=== PATIENT | female | born 1935 | race Caucasian/White ===

== ENCOUNTER 2017-07-10 03:55 | Inpatient (IN) | payer OTHER, MEDICARE ==
[2017-07-10] VITALS (8 sets, daily range): BP systolic 132–167; BP diastolic 62–72; PULSE 85–120; RESP 16–24; TEMP 98.1–99.1; O2SAT 91–96
[~2017-07-10] VITALS: Ht 162.6 cm; Wt 57.0 kg
--- NOTE | 2017-07-10 04:01 | PD ---
HPI Chief Complaint: Respiratory distress, hypoxia Time Seen by Provider: 04:00 Travel History International Travel<30 days: No Contact w/Intl Traveler<30days: No Traveled to known affect area: No History of Present Illness HPI 82-year-old female came to the emergency room with history of shortness of breath that progressively worsened over past 24 hours. Patient woke up at midnight with shortness of breath. She has oxygen at home which is for as needed use and she did use it. However her symptoms did not improve and she called 911. As per EMS upon their arrival patient was short of breath and decreased air entry. She has history of COPD. They started giving her albuterol nebulizer. When they transferred her to the stretcher oxygen saturation dropped down to 88%. At this point they added Atrovent and patient got total of 3 nebulizers. When she arrived here her oxygen saturation was 92% on room air and she said she was feeling little better. Patient is a heavy smoker since she was 14 years of age. She has never been intubated. She does have history of [place] and had a stent put in in 1995. She has not been in hospital since then. Patient denies of any chest pain. [facility] Past Medical History Narrative Medical List of her past medical, surgical, social and family history is reviewed from the nursing note. Social History Tobacco Use: Yes Allergies-Medications (Allergen,Severity, Reaction): Coded Allergies: penicillin G (Unverified Allergy, Severe, 07/10/17) Uncoded Allergies: NKA (Allergy, Unknown, 12/31/02) PCN (Allergy, Unknown, 12/31/02) Comments List of her allergies reviewed from the nursing note. Reported Meds & Prescriptions Reported Meds & Active Scripts Active Reported Tramadol (Tramadol HCl) 50 Mg Tab 50 Mg PO DAILY PRN Plavix (Clopidogrel Bisulfate) 75 Mg Tab 75 Mg PO DAILY Isosorbide Mononitrate ER (Isosorbide Mononitrate) 30 Mg Marcela 30 Mg PO DAILY Citalopram (Citalopram Hydrobromide) 40 Mg Tab 40 Mg PO DAILY Melatonin 5 Mg Tab 5 Mg PO HS Aspirin Low Dose (Aspirin) 81 Mg Chew 81 Mg CHEW DAILY Atorvastatin (Atorvastatin Calcium) 40 Mg Tab 40 Mg PO HS Narrative Medication List of her home medications reviewed from the nursing note. Review of Systems Except as stated in HPI: all other systems reviewed are Neg Respiratory: Positive: Shortness of Breath Physical Exam Narrative GENERAL: Awake, alert, elderly, anxious, moderate distress SKIN: Focused skin assessment warm/dry. HEAD: Atraumatic. Normocephalic. EYES: Pupils equal and round. No scleral icterus. No injection or drainage. ENT: No nasal bleeding or discharge. Mucous membranes pink and moist. NECK: Trachea midline. No JVD. CARDIOVASCULAR: Regular rate and rhythm. No murmur appreciated. RESPIRATORY: No accessory muscle use. End expiratory wheeze with coarse bilateral basilar crackles GASTROINTESTINAL: Abdomen soft, non-tender, nondistended. Hepatic and splenic margins not palpable. MUSCULOSKELETAL: No obvious deformities. No clubbing. No cyanosis. No edema. NEUROLOGICAL: Awake and alert. No obvious cranial nerve deficits. Motor grossly within normal limits. Normal speech. PSYCHIATRIC: Appropriate mood and affect; insight and judgment normal. Data Data Last Documented VS Orders Orders Complete Blood Count With Diff (07/10/17 04:06) Basic Metabolic Panel (Bmp) (07/10/17 04:06) B-Type Natriuretic Peptide (07/10/17 04:06) Prothrombin Time / Inr (Pt) (07/10/17 04:06) Magnesium (Mg) (07/10/17 04:06) Troponin I (07/10/17 04:06) Arterial Blood Gas (Abg) (07/10/17 04:06) Blood Culture (07/10/17 04:06) Iv Access Insert/Monitor (07/10/17 04:06) Electrocardiogram (07/10/17 04:06) Ecg Monitoring (07/10/17 04:06) Oximetry (07/10/17 04:06) Oxygen Administration (07/10/17 04:06) Chest, Single Ap (07/10/17 04:06) Sodium Chloride 0.9% Flush (Ns Flush) (07/10/17 04:15) Albuterol-Ipratropium Neb (Duoneb Neb) (07/10/17 04:30) Admit Order (Ed Use Only) (07/10/17 06:31) Place In Observation (07/10/17 ) Vital Signs (Adult) Q4H (07/10/17 06:29) Activity Oob With Assistance (07/10/17 06:29) Education Technician / Telemetry .CONTINUOUS (07/10/17 06:29) Intake + Output OMID.QSHIFT (07/10/17 06:29) Diet Heart Healthy (07/10/17 Breakfast) Sodium Chloride 0.9% Flush (Ns Flush) (07/10/17 06:30) Sodium Chloride 0.9% Flush (Ns Flush) (07/10/17 09:00) Acetaminophen (Tylenol) (07/10/17 06:30) Ondansetron Inj (Zofran Inj) (07/10/17 06:30) Basic Metabolic Panel (Bmp) (07/11/17 06:00) Complete Blood Count With Diff (07/11/17 06:00) Pt Request For Service (07/10/17 06:29) Case Management Consult (07/10/17 06:29) Scd Bilateral/Knee High OMID.BID (07/10/17 06:29) Naloxone Inj (Narcan Inj) (07/10/17 06:30) Ipratropium Neb (Atrovent Neb) (07/10/17 06:30) Ipratropium Neb (Atrovent Neb) (07/10/17 10:00) Methylprednisolone So Succ Inj (Solumedr (07/10/17 07:00) Methylprednisolone So Succ Inj (Solumedr (07/10/17 13:00) Labs Laboratory Tests Test 07/10/17 04:05 07/10/17 04:20 07/10/17 06:24 Blood Gas Puncture Site LT RADIAL Blood Gas Patient Temperature 98.6 Blood Gas HCO3 23 mmol/L Blood Gas Base Excess -0.9 mmol/L Blood Gas Oxygen Saturation 84 % Arterial Blood pH 7.39 Arterial Blood Partial Pressure CO2 39 mmHg Arterial Blood Partial Pressure O2 56 mmHG Arterial Blood Oxygen Content 16.8 Vol % Arterial Blood Carboxyhemoglobin 4.6 % Arterial Blood Methemoglobin 0.7 % Blood Gas Hemoglobin 14.2 G/DL Oxygen Delivery Device ROOM AIR Blood Gas Inspired Oxygen 21 % White Blood Count 8.1 TH/MM3 Red Blood Count 4.64 MIL/MM3 Hemoglobin 14.8 GM/DL Hematocrit 44.5 % Mean Corpuscular Volume 95.9 FL Mean Corpuscular Hemoglobin 31.9 PG Mean Corpuscular Hemoglobin Concent 33.2 % Red Cell Distribution Width 14.8 % Platelet Count 174 TH/MM3 Mean Platelet Volume 8.8 FL Neutrophils (%) (Auto) 60.6 % Lymphocytes (%) (Auto) 23.0 % Monocytes (%) (Auto) 13.3 % Eosinophils (%) (Auto) 2.5 % Basophils (%) (Auto) 0.6 % Neutrophils # (Auto) 4.9 TH/MM3 Lymphocytes # (Auto) 1.9 TH/MM3 Monocytes # (Auto) 1.1 TH/MM3 Eosinophils # (Auto) 0.2 TH/MM3 Basophils # (Auto) 0.0 TH/MM3 CBC Comment DIFF FINAL Differential Comment Prothrombin Time 9.9 SEC Prothromb Time International Ratio 1.0 RATIO B-Type Natriuretic Peptide 16 PG/ML Blood Urea Nitrogen 16 MG/DL Creatinine 1.12 MG/DL Random Glucose 187 MG/DL Calcium Level 8.1 MG/DL Magnesium Level 2.0 MG/DL Sodium Level 142 MEQ/L Potassium Level 6.2 MEQ/L Chloride Level 111 MEQ/L Carbon Dioxide Level 23.6 MEQ/L Anion Gap 7 MEQ/L Estimat Glomerular Filtration Rate 47 ML/MIN Troponin I LESS THAN 0.02 NG/ML MDM Medical Decision Making Medical Screen Exam Complete: Yes Emergency Medical Condition: Yes Medical Record Reviewed: Yes Interpretation(s) Twelve-lead EKG was reviewed by me. Normal sinus rhythm, normal axis, tachycardia, right atrial enlargement. Heart rate of 118 bpm. Differential Diagnosis Acute COPD exacerbation, CHF, pneumonia Narrative Course 5:45 AM CBCs within normal limits. Chest x-ray is negative. Patient was given 2 more DuoNeb's. ABG suggestive of hypoxia. Awaiting for the chemistry. Patient will require admission. Critical Care Narrative Aggregate critical care time was 30 minutes. Time to perform other separately billable procedures was not included in the critical care time. My time did not include minutes spent treating any other patients simultaneously or on activities that did not directly contribute to the patient's treatment. The services I provided to this patient were to treat and/or prevent clinically significant deterioration that could result in: Respiratory distress, COPD exacerbation I provided critical care services requiring my management, as noted below: Chart data review, documentation time, medication orders and management, vital sign assessments/reviewing monitor data, ordering and reviewing lab tests, ordering and interpreting/reviewing x-rays and diagnostic studies, care of the patient and discussion of the patient with the admitting physicians. Procedures EKG Prior to Arrival: No Diagnosis Primary Impression: Respiratory distress Additional Impressions: Acute exacerbation of chronic obstructive pulmonary disease (COPD) Hypoxia Admitting Information Admitting Physician Requests: Admit Scripts Prednisone (21) 10 mg tab Dose Pack (Prednisone (21) 10 mg tab Dose Pack) 10 Mg Pack 10 MG PO DIRECTED for Inflammation, #1 DSPK 0 Refills Prov: Maru Acuna MD 07/11/17 Magnolia Hughes MD Jul 10, 2017 04:00
[2017-07-10] MEDS ORDERED: SODIUM CHLORIDE 0.9% FLUSH 10 ML FLUSH IVF PRN (04:15)
[2017-07-10] MEDS ORDERED: ISOS30TA3 PO (04:22)
[2017-07-10] MEDS ORDERED: ATOR40TA16 PO (04:22)
[2017-07-10] MEDS ORDERED: MELA5 PO (04:22)
[2017-07-10] MEDS ORDERED: ASPI81CH6 CHEW (04:22)
[2017-07-10] MEDS ORDERED: PLAV75TA29 PO (04:22)
[2017-07-10] MEDS ORDERED: CITA40TA4 PO (04:22)
[2017-07-10] MEDS: RESP: ALBUTEROL 2.5 MG/IPRATROPIUM 0.5 MG NEB (SCH) INH (04:34)
[2017-07-10 04:39] LABS: AUTOMATED NEUTROPHIL # 4.9 TH/MM3 (1.8-7.7); BASOPHIL % 0.6 % (0.0-2.0); EOSINOPHIL # 0.2 TH/MM3 (0-0.4); EOSINOPHIL % 2.5 % (0.0-4.0); HEMATOCRIT 44.5 % (35.0-46.0); HEMOGLOBIN 14.8 GM/DL (11.6-15.3); LYMPHOCYTE # 1.9 TH/MM3 (1.0-4.8); MEAN CELL VOLUME 95.9 FL (80.0-100.0); MEAN CORPUSCULAR HEMOGLOBIN 31.9 PG (27.0-34.0); MEAN CORPUSCULAR HGB CONC 33.2 % (32.0-36.0); MEAN PLATELET VOLUME 8.8 FL (7.0-11.0); MONO % 13.3 % (0.0-8.0); MONOCYTE # 1.1 TH/MM3 (0-0.9); NEUT % 60.6 % (16.0-70.0); PLATELET COUNT 174 TH/MM3 (150-450); RED BLOOD COUNT 4.64 MIL/MM3 (4.00-5.30); RED CELL DISTRIBUTION WIDTH 14.8 % (11.6-17.2); WHITE BLOOD COUNT 8.1 TH/MM3 (4.0-11.0)
--- NOTE | 2017-07-10 04:42 | RADRPT ---
EXAM DATE/TIME: 07/10/2017 04:22 [place] COMPARISON: No previous studies available for comparison. INDICATIONS : Severe headache, shortness of breath. MEDICAL HISTORY : Congestive heart failure. SURGICAL HISTORY : None. ENCOUNTER: Initial ACUITY: 1 day PAIN SCORE: 0/10 LOCATION: Bilateral chest FINDINGS: A single view of the chest demonstrates the lungs to be symmetrically aerated without evidence of mas s, infiltrate or effusion. The cardiomediastinal contours are unremarkable. Osseous structures are intact. CONCLUSION: The lungs are clear. Shahriar Min MD on July 10, 2017 at 4:40 Board Certified Radiologist. This report was verified electronically.
[2017-07-10 04:52] LABS: PROTHROMBIN TIME - PATIENT 9.9 SEC (9.8-11.6)
[2017-07-10] MEDS ORDERED: RESP: IPRATROPIUM 0.5 MG/2.5 ML NEB NEB PRN (06:30)
[2017-07-10] MEDS ORDERED: ONDANSETRON HCL 4 MG/2 ML VIAL IVP PRN (06:30)
[2017-07-10] MEDS ORDERED: NALOXONE HCL 0.4 MG/ML AMP IV PUSH PRN (06:30)
[2017-07-10] MEDS ORDERED: ACETAMINOPHEN 325 MG TAB PO PRN (06:30)
[2017-07-10] MEDS ORDERED: SODIUM CHLORIDE 0.9% FLUSH 10 ML FLUSH IV FLUSH PRN (06:30)
[2017-07-10] MEDS ORDERED: ACETAMINOPHEN 325 MG TAB PO ONE (06:45)
[2017-07-10] MEDS ORDERED: methylPREDNISolone SOD SUCC 125 MG/2 ML VIAL IV PUSH ONE (07:00)
[2017-07-10 07:15] LABS: TROPONIN I LESS THAN 0.02 NG/ML (0.02-0.05)
[2017-07-10 07:23] LABS: BICARBONATE 23.6 MEQ/L (21.0-32.0); BLOOD UREA NITROGEN 16 MG/DL (7-18); CALCIUM 8.1 MG/DL (8.5-10.1); CHLORIDE 111 MEQ/L (98-107); CREATININE 1.12 MG/DL (0.50-1.00); GLOMERULAR FILTRATION RATE 47 ML/MIN (>89); GLUCOSE,RANDOM 187 MG/DL (74-106); SODIUM (NA) 142 MEQ/L (136-145)
[2017-07-10] MEDS ORDERED: TRAM50TA PO (08:28)
[2017-07-10] MEDS ORDERED: SODIUM POLYSTYRENE SULFONATE SUSP 15 GM/60 ML CUP PO ONE (09:15)
[2017-07-10] MEDS: RESP: IPRATROPIUM 0.5 MG/2.5 ML NEB NEB SCH ×3 (10:00→20:20)
--- NOTE | 2017-07-10 10:31 | EKG ---
Date Performed: 07/10/2017 Time Performed: 04:04:23 PTAGE: 82 years EKG: SINUS TACHYCARDIA POSSIBLE LEFT ATRIAL ENLARGEMENT NONSPECIFIC ST & T-WAVE ABNORMALITY ABNO RMAL RHYTHM ECG Compared to PREVIOUS TRACING the patient is now tachycardic and has nonspecific ST T wave changes ID [id number] TRACIN12/13/2002 14.08 DOCTOR: Jessica Diaz Interpretating Date/Time 07/10/2017 10:30:45
[2017-07-10] MEDS: SODIUM CHLORIDE 0.9% FLUSH 10 ML FLUSH IV FLUSH SCH (10:45)
[2017-07-10] MEDS: SODIUM CHLOR 0.9% 1000 ML INJ 1,000 ML IV SCH ×2 (10:45→22:35)
[2017-07-10] MEDS: traMADol HCL 50 MG TAB PO PRN (12:21)
[2017-07-10] MEDS: ASPIRIN 81 MG CHEW TAB CHEW SCH (12:22)
[2017-07-10] MEDS: CLOPIDOGREL 75 MG TAB PO SCH (12:24)
[2017-07-10] MEDS: CITALOPRAM HYDROBROMIDE 40 MG TAB PO SCH (13:25)
[2017-07-10] MEDS: ISOSORBIDE MONONITRATE 30 MG CR TAB (IMDUR) PO SCH (13:26)
[2017-07-10] MEDS: methylPREDNISolone SOD SUCC 40 MG/1 ML VIAL IV PUSH SCH ×2 (13:28→18:07)
--- NOTE | 2017-07-10 15:04 | HHI.HP ---
HPI Service [facility] Primary Care Physician Non-Staff Admission Diagnosis Acute COPD exacerbation, hypoxia, shortness of breath Diagnoses: Chief Complaint: Increase SOB Travel History International Travel<30 Days: No Contact w/Intl Traveler <30 Da: No Traveled to Known Affected Are: No History of Present Illness Written by Sahara Puente, acting as scribe for Dr. Acuna on 07/10/17 at 15:04. Patient is an 83-year-old female with primary medical history of HTN, HLD, COPD, tobacco abuse who came into the hospital with complaints of increasing shortness of breath. Patient states that last night she woke up and feels like she had a panic attack, she cannot breathe she got her oxygen but continues to not be able to catch her breath that she called the EMS. Currently , patient states that she felt improved in shortness of breath is a lot better. States that she has oxygen that she uses off and on at home. States that she continues to smoke about 11 cigarettes per day, patient also admits that she has been smoking since then she was 14 years old. She is willing to be placed on nicotine patch. 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 Benítez. Denies pain and discomfort. Denies chest pain, palpitations, headaches, dizziness. Denies fevers, chills, n/ v. Denies dysuria. 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 HLD HTN Past Surgical History Stent placement in her legs Stent placement in her heart Back surgery Reported Medications Reported Meds & Active Scripts Active Reported Tramadol (Tramadol HCl) 50 Mg Tab 50 Mg PO DAILY PRN Plavix (Clopidogrel Bisulfate) 75 Mg Tab 75 Mg PO DAILY Isosorbide Mononitrate ER (Isosorbide Mononitrate) 30 Mg Marcela 30 Mg PO DAILY Citalopram (Citalopram Hydrobromide) 40 Mg Tab 40 Mg PO DAILY Melatonin 5 Mg Tab 5 Mg PO HS Aspirin Low Dose (Aspirin) 81 Mg Chew 81 Mg CHEW DAILY Atorvastatin (Atorvastatin Calcium) 40 Mg Tab 40 Mg PO HS Allergies: Coded Allergies: penicillin G (Unverified Allergy, Severe, 07/10/17) Uncoded Allergies: NKA (Allergy, Unknown, 12/31/02) PCN (Allergy, Unknown, 12/31/02) Active Ordered Medications Current Medications Medications (Trade) Dose Ordered Sig/Isma Route Start Time Stop Time Status Last Admin (NS Flush) 2 ml UNSCH PRN IVF 07/10/17 04:15 (NS Flush) 2 ml UNSCH PRN IV FLUSH 07/10/17 06:30 (NS Flush) 2 ml BID IV FLUSH 07/10/17 09:00 07/10/17 10:45 (Tylenol) 650 mg Q4H PRN PO 07/10/17 06:30 (Zofran Inj) 4 mg Q6H PRN IVP 07/10/17 06:30 (Narcan Inj) 0.4 mg UNSCH PRN IV PUSH 07/10/17 06:30 (Atrovent Neb) 0.5 mg Q2HR NEB PRN NEB 07/10/17 06:30 (Atrovent Neb) 0.5 mg Q6HR NEB NEB 07/10/17 10:00 (SoluMEDROL INJ) 40 mg Q6HR IV PUSH 07/10/17 13:00 07/10/17 13:28 Sodium Chloride 1,000 ml @ 75 mls/hr [id number] IV 07/10/17 09:15 07/10/17 10:45 (Aspirin Chew) 81 mg DAILY CHEW 07/10/17 11:00 07/10/17 12:22 (Lipitor) 40 mg HS PO 07/10/17 21:00 (CeleXA) 40 mg DAILY PO 07/10/17 11:00 07/10/17 13:25 (Plavix) 75 mg DAILY PO 07/10/17 11:00 07/10/17 12:24 (Imdur) 30 mg DAILY PO 07/10/17 11:00 07/10/17 13:26 (Melatonin) 5 mg HS PO 07/10/17 21:00 (Ultram) 50 mg DAILY PRN PO 07/10/17 11:00 07/10/17 12:21 (Habitrol 14 Mg Patch.24 Hr) 1 patch DAILY T-DERMAL 07/10/17 15:45 Miscellaneous Information 1 DAILY T-DERMAL 07/11/17 09:00 Family History Mother has heart attack at the age of 72 and passed. Sister also had heart attacks. Brother had cancer of the liver and passed Social History Lives at home. Denies alcohol use Current smoker, 11 cigarettes per day Denies illicit drug use Physical Exam Vital Signs Vital Signs Date Time Temp Pulse Resp B/P (MAP) Pulse Ox O2 Delivery O2 Flow Rate FiO2 07/10/17 12:52 98.1 96 18 157/65 (95) 96 07/10/17 11:04 96 16 132/62 (85) 94 Room Air 07/10/17 07:33 102 18 150/67 (94) 96 Nasal Cannula 3.00 07/10/17 04:45 93 Nasal Cannula 4.00 07/10/17 04:08 24 91 Room Air 07/10/17 04:08 Nasal Cannula 2.00 07/10/17 04:05 98.2 120 24 167/72 (103) 91 Physical Exam GENERAL: This is a well-nourished, well-developed patient, shortness of breath. SKIN: Cool and dry. HEAD: Atraumatic. Normocephalic. No temporal or scalp tenderness. EYES: Pupils equal round and reactive. Extraocular motions intact. No scleral icterus. No injection or drainage. ENT: Nose without bleeding. Throat without erythema. Uvula midline. Airway patent. NECK: Trachea midline. CARDIOVASCULAR: Regular rate and rhythm without murmurs, gallops, or rubs. RESPIRATORY: Clear to auscultation. Breath sounds equal bilaterally. No wheezes , rales, or rhonchi. GASTROINTESTINAL: Abdomen soft, non-tender, nondistended. MUSCULOSKELETAL: Extremities without clubbing, cyanosis, or edema. NEUROLOGICAL: Awake and alert. Cranial nerves II through XII intact. Motor and sensory grossly within normal limits. Normal speech. Laboratory Laboratory Tests Test 07/10/17 04:05 07/10/17 04:20 07/10/17 06:24 Blood Gas Puncture Site LT RADIAL Blood Gas Patient Temperature 98.6 Blood Gas HCO3 23 Blood Gas Base Excess -0.9 Blood Gas Oxygen Saturation 84 Arterial Blood pH 7.39 Arterial Blood Partial Pressure CO2 39 Arterial Blood Partial Pressure O2 56 Arterial Blood Oxygen Content 16.8 Arterial Blood Carboxyhemoglobin 4.6 Arterial Blood Methemoglobin 0.7 Blood Gas Hemoglobin 14.2 Oxygen Delivery Device ROOM AIR Blood Gas Inspired Oxygen 21 White Blood Count 8.1 Red Blood Count 4.64 Hemoglobin 14.8 Hematocrit 44.5 Mean Corpuscular Volume 95.9 Mean Corpuscular Hemoglobin 31.9 Mean Corpuscular Hemoglobin Concent 33.2 Red Cell Distribution Width 14.8 Platelet Count 174 Mean Platelet Volume 8.8 Neutrophils (%) (Auto) 60.6 Lymphocytes (%) (Auto) 23.0 Monocytes (%) (Auto) 13.3 Eosinophils (%) (Auto) 2.5 Basophils (%) (Auto) 0.6 Neutrophils # (Auto) 4.9 Lymphocytes # (Auto) 1.9 Monocytes # (Auto) 1.1 Eosinophils # (Auto) 0.2 Basophils # (Auto) 0.0 CBC Comment DIFF FINAL Differential Comment Prothrombin Time 9.9 Prothromb Time International Ratio 1.0 B-Type Natriuretic Peptide 16 Blood Urea Nitrogen 16 Creatinine 1.12 Random Glucose 187 Calcium Level 8.1 Magnesium Level 2.0 Sodium Level 142 Potassium Level 6.2 Chloride Level 111 Carbon Dioxide Level 23.6 Anion Gap 7 Estimat Glomerular Filtration Rate 47 Troponin I LESS THAN 0.02 Date/Time Source Procedure Growth Status 07/10/17 04:25 Blood Peripheral Aerobic Blood Culture Pending Received 07/10/17 04:25 Blood Peripheral Anaerobic Blood Culture Pending Received Result Diagram: 07/10/17 0420 07/10/17 0624 Imaging Last Impressions Chest X-Ray 07/10/17 0406 Signed Impressions: Service Date/Time: Monday, July 10, 2017 04:22 - CONCLUSION: The lungs are clear. Shahriar Min MD Caprini VTE Risk Assessment Caprini VTE Risk Assessment: Mod/High Risk (score >= 2) Caprini Risk Assessment Model Point Value = 1 Point Value = 2 Point Value = 3 Point Value = 5 Age 41-60 Minor surgery BMI > 25 kg/m2 Swollen legs Varicose veins or History of unexplained or recurrent spontaneous Oral contraceptives or hormone replacement Sepsis (< 1 month) Serious lung disease, including pneumonia (< 1 month) Abnormal pulmonary function Acute myocardial infarction Congestive heart failure (< 1 month) History of inflammatory bowel disease Medical patient at bed rest Age 61-74 Arthroscopic surgery Major open surgery (> 45 min) Laparoscopic surgery (> 45 min) Malignancy Confined to bed (> 72 hours) Immobilizing plaster cast Central venous access Age >= 75 History of VTE Family history of VTE Factor V Leiden Prothrombin [id number] Lupus anticoagulant Anticardiolipin antibodies Elevated serum homocysteine Heparin-induced thrombocytopenia Other congenital or acquired thrombophilia Stroke (< 1 month) Elective arthroplasty Hip, pelvis, or leg fracture Acute spinal cord injury (< 1 month) Prophylaxis Regimen Total Risk Factor Score Risk Level Prophylaxis Regimen 0-1 Low Early ambulation 2 Moderate Order ONE of the following: *Sequential Compression Device (SCD) *Heparin 5000 units SQ BID 3-4 Higher Order ONE of the following medications: *Heparin 5000 units SQ TID *Enoxaparin/Lovenox 40 mg SQ daily (WT < 150 kg, CrCl > 30 mL/min) *Enoxaparin/Lovenox 30 mg SQ daily (WT < 150 kg, CrCl > 10-29 mL/min) *Enoxaparin/Lovenox 30 mg SQ BID (WT < 150 kg, CrCl > 30 mL/min) AND/OR *Sequential Compression Device (SCD) 5 or more Highest Order ONE of the following medications: *Heparin 5000 units SQ TID (Preferred with Epidurals) *Enoxaparin/Lovenox 40 mg SQ daily (WT < 150 kg, CrCl > 30 mL/min) *Enoxaparin/Lovenox 30 mg SQ daily (WT < 150 kg, CrCl > 10-29 mL/min) *Enoxaparin/Lovenox 30 mg SQ BID (WT < 150 kg, CrCl > 30 mL/min) AND *Sequential Compression Device (SCD) Assessment and Plan Problem List: (1) Acute exacerbation of chronic obstructive pulmonary disease (COPD) ICD Code: J44.1 - Chronic obstructive pulmonary disease with (acute) exacerbation Status: Acute (2) Hypoxia ICD Code: R09.02 - Hypoxemia Status: Acute (3) Respiratory distress ICD Code: R06.03 - Acute respiratory distress Status: Acute Assessment and Plan Patient is an 83-year-old female with primary medical history of HTN, HLD, COPD, tobacco abuse who came into the hospital with complaints of increasing shortness of breath. COPD exacerbation Respiratory failure -Continue O2 nasal cannula, maintain O2 sat greater than 90% -Duo nebs scheduled and as needed -IV Solu-Medrol. Will DC with prednisone 20 mg twice daily 5 days -Start Symbicort BID -Follow-up labs. -States she is significantly improved. Monitor respiratory status Hyperkalemia -Potassium 6.2 -Kayexalate 1 dose -Monitor potassium level HTN, uncontrolled HLD -Continue home medications aspirin 81 mg, atorvastatin 40 mg, Plavix 75 mg, isosorbide 30 mg daily -We will add Norvasc daily Insomnia -Continue melatonin Tobacco abuse -Patient has been counseled. She plans to cut back on her smoking and totally quit. -Nicotine patch DVT prop heparin This note was transcribed by MAURICE Small . I, Dr. Maru Acuna personally performed the history, physical exam, and medical decision making; and confirmed the accuracy of the information in the transcribed note. Authenticated by Dr. Maru Acuna on 07/10/17 at 15:04. Code Status Full code Discussed Condition With Patient, nursing Physician Certification 2 Midnight Certification Type: Admission for Inpatient Services Order for Inpatient Services The services are ordered in accordance with Medicare regulations or non- Medicare payer requirements, as applicable. In the case of services not specified as inpatient-only, they are appropriately provided as inpatient services in accordance with the 2-midnight benchmark. Estimated LOS (days): 2 days is the estimated time the patient will need to remain in the hospital, assuming treatment plan goals are met and no additional complications. Post-Hospital Plan: Home Sahara Staton Jul 10, 2017 15:04 Maru Acuna MD Jul 10, 2017 15:29
[2017-07-10] MEDS ORDERED: MELATONIN 5 MG TAB PO PRN (15:15)
[2017-07-10] MEDS: NICOTINE 14 MG/24 HR PATCH T-DERMAL SCH (18:07)
[2017-07-10] MEDS: amLODIPine BESYLATE 5 MG TAB PO SCH (18:07)
[2017-07-10] MEDS ORDERED: MELATONIN 5 MG TAB PO SCH (21:00)
[2017-07-10] MEDS ORDERED: ATORVASTATIN 40 MG TAB PO SCH (21:00)
[2017-07-11 00:38] VITALS: BP 176/76; PULSE 94; RESP 18; TEMP 98.3; O2SAT 97
[2017-07-11] MEDS: methylPREDNISolone SOD SUCC 40 MG/1 ML VIAL IV PUSH SCH ×3 (02:12→13:22)
[2017-07-11] MEDS: SODIUM CHLORIDE 0.9% FLUSH 10 ML FLUSH IV FLUSH SCH (02:12)
[2017-07-11] MEDS: BUDESONIDE-FORMOTEROL 160/4.5 MCG INHALER INH SCH ×2 (02:12→09:59)
[2017-07-11] MEDS: traMADol HCL 50 MG TAB PO PRN (02:23)
[2017-07-11] MEDS: RESP: IPRATROPIUM 0.5 MG/2.5 ML NEB NEB SCH ×2 (03:55→08:26)
[2017-07-11 04:11] VITALS: BP 141/69; PULSE 88; RESP 18; TEMP 97.7; O2SAT 96
[2017-07-11 07:15] LABS: AUTOMATED NEUTROPHIL # 12.2 TH/MM3 (1.8-7.7); BASOPHIL % 0.1 % (0.0-2.0); HEMATOCRIT 36.5 % (35.0-46.0); HEMOGLOBIN 12.6 GM/DL (11.6-15.3); LYMPHOCYTE # 0.4 TH/MM3 (1.0-4.8); MEAN CELL VOLUME 95.1 FL (80.0-100.0); MEAN CORPUSCULAR HEMOGLOBIN 32.7 PG (27.0-34.0); MEAN CORPUSCULAR HGB CONC 34.4 % (32.0-36.0); MEAN PLATELET VOLUME 8.6 FL (7.0-11.0); MONO % 3.2 % (0.0-8.0); MONOCYTE # 0.4 TH/MM3 (0-0.9); NEUT % 93.7 % (16.0-70.0); PLATELET COUNT 160 TH/MM3 (150-450); RED BLOOD COUNT 3.84 MIL/MM3 (4.00-5.30); RED CELL DISTRIBUTION WIDTH 14.7 % (11.6-17.2); WHITE BLOOD COUNT 13.1 TH/MM3 (4.0-11.0)
[2017-07-11 07:47] LABS: BICARBONATE 24.1 MEQ/L (21.0-32.0); CALCIUM 8.5 MG/DL (8.5-10.1); CREATININE 0.66 MG/DL (0.50-1.00)
[2017-07-11 08:00] VITALS: BP 162/72; PULSE 89; RESP 18; TEMP 97.4; O2SAT 96
[2017-07-11] MEDS ORDERED: REMOVE OLD PATCH T-DERMAL SCH (09:00)
[2017-07-11] MEDS: CLOPIDOGREL 75 MG TAB PO SCH (09:58)
[2017-07-11] MEDS: CITALOPRAM HYDROBROMIDE 40 MG TAB PO SCH (09:58)
[2017-07-11] MEDS: ISOSORBIDE MONONITRATE 30 MG CR TAB (IMDUR) PO SCH (09:58)
[2017-07-11] MEDS: amLODIPine BESYLATE 5 MG TAB PO SCH (09:58)
[2017-07-11] MEDS: ASPIRIN 81 MG CHEW TAB CHEW SCH (09:58)
[2017-07-11] MEDS: NICOTINE 14 MG/24 HR PATCH T-DERMAL SCH (10:02)
[2017-07-11 11:59] VITALS: BP 141/69; PULSE 93; RESP 20; TEMP 98.6; O2SAT 95
[2017-07-11] MEDS ORDERED: PRED10PA PO (13:11)
--- NOTE | 2017-07-11 13:11 | HHI.DS ---
Discharge Summary Admission Date Jul 10, 2017 at 07:00 Discharge Date: Jul 11, 2017 Admitting Diagnosis Acute COPD exacerbation, hypoxia, shortness of breath (1) Acute exacerbation of chronic obstructive pulmonary disease (COPD) ICD Code: J44.1 - Chronic obstructive pulmonary disease with (acute) exacerbation Status: Acute (2) Hypoxia ICD Code: R09.02 - Hypoxemia Status: Acute (3) Respiratory distress ICD Code: R06.03 - Acute respiratory distress Status: Acute Procedures none Brief History - From Admission Patient is an 83-year-old female with primary medical history of HTN, HLD, COPD, tobacco abuse who came into the hospital with complaints of increasing shortness of breath. Patient states that last night she woke up and feels like she had a panic attack, she cannot breathe she got her oxygen but continues to not be able to catch her breath that she called the EMS. Currently , patient states that she felt improved in shortness of breath is a lot better. States that she has oxygen that she uses off and on at home. States that she continues to smoke about 11 cigarettes per day, patient also admits that she has been smoking since then she was 14 years old. She is willing to be placed on nicotine patch. 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 Benítez. Denies pain and discomfort. Denies chest pain, palpitations, headaches, dizziness. Denies fevers, chills, n/ v. Denies dysuria. CBC/BMP: 07/11/17 0641 07/11/17 0641 Significant Findings Laboratory Tests Test 07/10/17 04:05 07/10/17 04:20 07/10/17 06:24 07/10/17 21:26 Blood Gas Oxygen Saturation 84 % (90-100) Arterial Blood Partial Pressure O2 56 mmHG (61-120) Arterial Blood Carboxyhemoglobin 4.6 % (0-4) Monocytes (%) (Auto) 13.3 % (0.0-8.0) Monocytes # (Auto) 1.1 TH/MM3 (0-0.9) Creatinine 1.12 MG/DL (0.50-1.00) Random Glucose 187 MG/DL (74-106) Calcium Level 8.1 MG/DL (8.5-10.1) Potassium Level 6.2 MEQ/L (3.5-5.1) Chloride Level 111 MEQ/L (98-107) Estimat Glomerular Filtration Rate 47 ML/MIN (>89) Troponin I LESS THAN 0.02 NG/ML Test 07/11/17 06:41 White Blood Count 13.1 TH/MM3 (4.0-11.0) Red Blood Count 3.84 MIL/MM3 (4.00-5.30) Neutrophils (%) (Auto) 93.7 % (16.0-70.0) Lymphocytes (%) (Auto) 3.0 % (9.0-44.0) Neutrophils # (Auto) 12.2 TH/MM3 (1.8-7.7) Lymphocytes # (Auto) 0.4 TH/MM3 (1.0-4.8) Random Glucose 153 MG/DL (74-106) Chloride Level 111 MEQ/L (98-107) Estimat Glomerular Filtration Rate 86 ML/MIN (>89) Imaging Last Impressions Chest X-Ray 07/10/17 0406 Signed Impressions: Service Date/Time: Monday, July 10, 2017 04:22 - CONCLUSION: The lungs are clear. Shahriar Min MD PE at Discharge GENERAL: This is a well-nourished, well-developed patient, shortness of breath CARDIOVASCULAR: Regular rate and rhythm without murmurs, gallops, or rubs. RESPIRATORY: Clear to auscultation. Breath sounds equal bilaterally. No wheezes , rales, or rhonchi. GASTROINTESTINAL: Abdomen soft, non-tender, nondistended. MUSCULOSKELETAL: Extremities without clubbing, cyanosis, or edema. NEUROLOGICAL: Awake and alert. Cranial nerves II through XII intact. Motor and sensory grossly within normal limits. Normal speech. Pt update on day of discharge Improved significantly. Sating well on 2L NC has O2 at home. No feefer or chills.No cough. No wheezing. Has all meds at home. Wants to go home. Her grandson will come and pick her up Hospital Course Patient is an 83-year-old female with primary medical history of HTN, HLD, COPD, tobacco abuse who came into the hospital with complaints of increasing shortness of breath. COPD exacerbation Respiratory failure -Continue O2 nasal cannula, maintain O2 sat greater than 90% -Duo nebs scheduled and as needed -IV Solu-Medrol. Will DC with prednisone 20 mg twice daily 5 days -Start Symbicort BID -Follow-up labs. -States she is significantly improved. Monitor respiratory status -blood cultures likely contaminanat / GPC. Afebrile, no leukocytosis, clinically well Hyperkalemia -Potassium 6.2 -Kayexalate 1 dose -Monitor potassium level HTN, uncontrolled HLD -Continue home medications aspirin 81 mg, atorvastatin 40 mg, Plavix 75 mg, isosorbide 30 mg daily -We will add Norvasc daily Insomnia -Continue melatonin Tobacco abuse -Patient has been counseled. She plans to cut back on her smoking and totally quit. -Nicotine patch DVT prop heparin Improved. No wheezing sattign well on 2L NC. Has O2 at home. DC home in stable condition to follow up as OP with PCP and consultants Pt Condition on Discharge: Stable Discharge Disposition: Discharge Home Discharge Time: > 30 minutes Discharge Instructions DIET: Follow Instructions for: Heart Healthy Diet Activities you can perform: Regular-No Restrictions Follow up Referrals: PCP Follow-up - 2-3 Days New Medications: Prednisone (21) 10 mg tab Dose Pack (Prednisone (21) 10 mg tab Dose Pack) 10 Mg Pack 10 MG PO DIRECTED for Inflammation, #1 DSPK 0 Refills Continued Medications: Aspirin (Aspirin Low Dose) 81 Mg Chew 81 MG CHEW DAILY, TAB 0 Refills Atorvastatin (Atorvastatin) 40 Mg Tab 40 MG PO HS for Cholesterol Management, #30 TAB 0 Refills Citalopram (Citalopram) 40 Mg Tab 40 MG PO DAILY for Control Depression, #30 TAB 0 Refills Clopidogrel (Plavix) 75 Mg Tab 75 MG PO DAILY for Blood Clot Prevention, #30 TAB 0 Refills Isosorbide Mononitrate ER (Isosorbide Mononitrate ER) 30 Mg Marcela 30 MG PO DAILY for Prevent Chest Pain, #30 TAB 0 Refills Melatonin (Melatonin) 5 Mg Tab 5 MG PO HS for Provide Good Sleep, TAB 0 Refills Tramadol (Tramadol) 50 Mg Tab 50 MG PO DAILY PRN for PAIN, TAB 0 Refills Maru Acuna MD Jul 11, 2017 13:11
[2017-07-11 14:00] VITALS: PULSE 88
== END 2017-07-11 15:49 | disposition home or self-care (01) | DRG 190 ==
LOC: NEPC 03:55 → NEDA 06:33 → OBSVTOIN 07:00 → NEDH 10:59
PROVIDERS: ADMIT Hospitalist; ATTEND Hospitalist
DX: J44.1 Chronic obstructive pulmonary disease with (acute) exacerbation (principal); J96.91 Respiratory failure, unspecified with hypoxia; C96.9 Malignant neoplasm of lymphoid, hematopoietic and related tissue, unspecified; Z99.81 Dependence on supplemental oxygen; I10 Essential (primary) hypertension; E78.5 Hyperlipidemia, unspecified; E87.5 Hyperkalemia; F17.210 Nicotine dependence, cigarettes, uncomplicated; I25.2 Old myocardial infarction; Z82.49 Family history of ischemic heart disease and other diseases of the circulatory system; G47.00 Insomnia, unspecified; Z79.899 Other long term (current) drug therapy
CPT/HCPCS: 36600; 71045; 80048; 82805; 83735; 83880; 84132; 84484; 85025; 85610; 86403; 87040; 87077; 87186; 87205; 93005; 94640; 94664; J2920; J7030; J7644